=== PATIENT | female | born 1955 | race African-American/Black ===

== ENCOUNTER 2018-07-21 14:28 | Inpatient (IN) ==
[2018-07-21 15:31] LABS: Basophils # 0.1 10*3/uL (0.0-0.2); Basophils % 0.3 % (0.0-0.8); Eosinophils # 0.2 10*3/uL (0.0-0.87); Immature Granulocytes Absolute 1.12 #; Lymphocytes # 1.2 10*3/uL (1.4-4.0); Lymphocytes % 6.2 % (21.3-54.2); Mean Corpuscular HGB Conc 29.2 GM/DL (32-36); Mean Corpuscular Volume 89.7 FL (87-102); Mean Platelet Volume 10.4 FL (9.6-12.0); Monocytes % 6.7 % (1.7-12.7); NRBC # 0.03 10*3/uL; Neutrophils % 79.8 % (38.7-73.9); Platelet Count 255 T/CUMM (130-400); Red Blood Count 4.09 MC/CUMM (3.8-5.5)
[2018-07-21 15:32] LABS: Hematocrit 36.7 VOL% (35.7-47.0); Hemoglobin 10.7 GM/DL (12.0-16.0); White Blood Count 18.6 T/CUMM (4-12)
[2018-07-21 15:34] LABS: Albumin 2.8 G/DL (3.4-5.0); Bilirubin,Total 0.5 MG/DL (0.2-1.0); Calcium 7.6 MG/DL (8.5-10.1); Osmolality,Calculated 288.1 MOS/KG (273-304); Total Protein 6.9 G/DL (6.4-8.3)
[2018-07-21] MEDS ORDERED: ONDANSETRON 4 MG/2 ML VIAL IV PRN (16:02)
[2018-07-21 16:04] LABS: Band Neutrophils 7 % (0-10); Eosinophils 1 % (0-10); Lymphocytes 8 % (20-55); Segmented Neutrophils 83 % (50-85); Total Cells Counted 100
[2018-07-21 16:05] LABS: Platelet Estimate Normal; Reactive Lymphocytes Few; Rouleau 1+
[2018-07-21 16:06] LABS: Anisocytosis Slight; Hypochromasia 2+; Microcytosis Slight; Polychromasia 1+
[2018-07-21 17:09] LABS: Risk Ratio 2.65; Thyroid Stimulating Hormone 1.34 uIU/ml (0.358-3.74); VLDL CHOLESTEROL 27.4 MG/DL
[2018-07-21] MEDS ORDERED: NALOXONE 0.4 MG/ML VIAL IV ONE (18:53)
[2018-07-22 03:10] LABS: Basophils % 0.3 % (0.0-0.8); Eosinophils # 0.2 10*3/uL (0.0-0.87); Eosinophils % 1.5 % (0.00-10.9); Immature Granulocytes % 1.4 %; Immature Granulocytes Absolute 0.17 #; Lymphocytes # 1.2 10*3/uL (1.4-4.0); Lymphocytes % 9.6 % (21.3-54.2); Mean Corpuscular HGB Conc 28.1 GM/DL (32-36); Mean Corpuscular Volume 93.2 FL (87-102); Mean Platelet Volume 10.9 FL (9.6-12.0); Monocytes % 9.1 % (1.7-12.7); NRBC # 0.03 10*3/uL; Neutrophils % 78.1 % (38.7-73.9); Platelet Count 202 T/CUMM (130-400); Red Blood Count 3.82 MC/CUMM (3.8-5.5); Red Cell Distribution Width 19.2 % (9.3-17.3); White Blood Count 12.3 T/CUMM (4-12)
[2018-07-22 03:17] LABS: Hematocrit 35.6 VOL% (35.7-47.0)
[2018-07-22 03:32] LABS: Calcium 7.6 MG/DL (8.5-10.1); Osmolality,Calculated 284.4 MOS/KG (273-304)
[2018-07-22] MEDS ORDERED: hydrOXYzine HCL 25 MG TABLET PO PRN (06:50)
[2018-07-22] MEDS ORDERED: DEXTROSE 50% 25 GM/50 ML SYRINGE IV PRN (06:53)
[2018-07-22] MEDS ORDERED: GLUCAGON 1 MG VIAL IM PRN (06:53)
[2018-07-22] MEDS ORDERED: MIDODRINE 5 MG TABLET PO SCH (07:00)
[2018-07-22] MEDS: INSULIN LISPRO 100 UNIT/ML SUBCUT SCH ×4 (08:17→20:19)
[2018-07-22] MEDS: CALCIUM ACETATE 667 MG CAPSULE PO SCH ×3 (08:18→18:55)
[2018-07-22 09:42] LABS: ABG Oxygen Saturation 96.4 % (95-100); ABG TCO2 24.3 MMOL/L (23-27)
[2018-07-22 09:44] LABS: ABG PCO2 69.8 MM HG (35-48); ABG PH 7.175 (7.35-7.45)
[2018-07-22] MEDS: CINACALCET 30 MG TABLET PO SCH (10:50)
[2018-07-22] MEDS: PANTOPRAZOLE 40 MG TABLET PO SCH (10:51)
[2018-07-22 12:11] LABS: ABG Base Excess -4.8 MMOL/L (-2.5-2.5); ABG HCO3 20.4 MMOL/L (20-26); ABG TCO2 23.8 MMOL/L (23-27)
[2018-07-22 12:15] LABS: ABG PH 7.164 (7.35-7.45)
[2018-07-22 12:16] LABS: ABG PCO2 71.3 MM HG (35-48)
[2018-07-22] MEDS ORDERED: HEPARIN 10,000 UNIT/10 ML VIAL IV PRN (13:44)
[2018-07-22 14:12] LABS: ABG Base Excess -4.2 MMOL/L (-2.5-2.5); ABG HCO3 20.8 MMOL/L (20-26); ABG Oxygen Saturation 90.6 % (95-100); ABG PCO2 59.4 MM HG (35-48); ABG PH 7.224 (7.35-7.45); ABG PO2 73.6 MM HG (80-95); ABG TCO2 22.5 MMOL/L (23-27)
[2018-07-22] MEDS: HEPARIN 5,000 UNIT/1 ML VIAL SUBCUT SCH (18:55)
[2018-07-22] MEDS: ALBUTEROL/IPRATROPIUM 3 ML NEB RESP TX SCH (20:03)
[2018-07-23] MEDS: ALBUTEROL/IPRATROPIUM 3 ML NEB RESP TX SCH ×4 (00:15→19:55)
[2018-07-23] MEDS: HEPARIN 5,000 UNIT/1 ML VIAL SUBCUT SCH ×3 (01:27→17:20)
[2018-07-23 02:41] LABS: Basophils % 0.3 % (0.0-0.8); Eosinophils # 0.2 10*3/uL (0.0-0.87); Hematocrit 35.3 VOL% (35.7-47.0); Hemoglobin 9.9 GM/DL (12.0-16.0); Immature Granulocytes % 0.7 %; Immature Granulocytes Absolute 0.06 #; Lymphocytes # 0.8 10*3/uL (1.4-4.0); Lymphocytes % 9.3 % (21.3-54.2); Mean Corpuscular Volume 91.9 FL (87-102); Mean Platelet Volume 10.2 FL (9.6-12.0); Monocytes % 12.8 % (1.7-12.7); NRBC # 0.02 10*3/uL; Neutrophils % 74.9 % (38.7-73.9); Platelet Count 184 T/CUMM (130-400); Red Blood Count 3.84 MC/CUMM (3.8-5.5); Red Cell Distribution Width 19.2 % (9.3-17.3); White Blood Count 9.1 T/CUMM (4-12)
[2018-07-23 03:05] LABS: Calcium 8.1 MG/DL (8.5-10.1); Osmolality,Calculated 280.2 MOS/KG (273-304)
[2018-07-23] MEDS: ACETAMINOPHEN 325 MG/10.15 ML UDCUP PO PRN (07:52)
[2018-07-23] MEDS: CALCIUM ACETATE 667 MG CAPSULE PO SCH ×3 (09:08→17:20)
[2018-07-23] MEDS: CINACALCET 30 MG TABLET PO SCH (09:08)
[2018-07-23] MEDS: INSULIN LISPRO 100 UNIT/ML SUBCUT SCH ×4 (09:09→21:51)
[2018-07-23] MEDS: PANTOPRAZOLE 40 MG TABLET PO SCH (09:09)
[2018-07-23 11:51] LABS: Hepatitis B Core IgM Quant < 0.05 Index; Hepatitis B Surface Ag Quant < 0.10 Index; Hepatitis B Surface Ag Result Negative (Negative); Hepatitis C Virus Ab Quant 0.07 Index; Hepatitis C Virus Ab Result Negative (Negative)
[2018-07-24] MEDS: HEPARIN 5,000 UNIT/1 ML VIAL SUBCUT SCH ×3 (01:20→16:32)
[2018-07-24] MEDS: ALBUTEROL/IPRATROPIUM 3 ML NEB RESP TX SCH ×4 (02:02→18:55)
[2018-07-24 02:53] LABS: Basophils # 0.1 10*3/uL (0.0-0.2); Basophils % 0.7 % (0.0-0.8); Eosinophils # 0.1 10*3/uL (0.0-0.87); Eosinophils % 1.3 % (0.00-10.9); Immature Granulocytes % 0.7 %; Immature Granulocytes Absolute 0.05 #; Lymphocytes # 1.1 10*3/uL (1.4-4.0); Lymphocytes % 15.6 % (21.3-54.2); Mean Corpuscular HGB Conc 27.4 GM/DL (32-36); Mean Corpuscular Volume 93.3 FL (87-102); Mean Platelet Volume 10.2 FL (9.6-12.0); Monocytes % 18.4 % (1.7-12.7); NRBC # 0.02 10*3/uL; Neutrophils % 63.3 % (38.7-73.9); Platelet Count 161 T/CUMM (130-400); Red Blood Count 3.44 MC/CUMM (3.8-5.5); White Blood Count 7.2 T/CUMM (4-12)
[2018-07-24 03:09] LABS: Calcium 7.6 MG/DL (8.5-10.1)
[2018-07-24 03:15] LABS: Hematocrit 31.9 VOL% (35.7-47.0)
[2018-07-24 03:16] LABS: Hemoglobin 8.9 GM/DL (12.0-16.0)
[2018-07-24] MEDS: ACETAMINOPHEN 325 MG/10.15 ML UDCUP PO PRN (03:25)
[2018-07-24 04:00] LABS: Band Neutrophils 1 % (0-10); Eosinophils 1 % (0-10); Lymphocytes 20 % (20-55); Segmented Neutrophils 67 % (50-85); Total Cells Counted 100
[2018-07-24 04:01] LABS: Anisocytosis 1+; Hypochromasia 1+; Platelet Estimate Adequate; Tear Drop Cells Few
[2018-07-24] MEDS: INSULIN LISPRO 100 UNIT/ML SUBCUT SCH ×4 (07:02→21:47)
[2018-07-24] MEDS: CINACALCET 30 MG TABLET PO SCH (08:38)
[2018-07-24] MEDS: CALCIUM ACETATE 667 MG CAPSULE PO SCH ×3 (08:39→16:32)
[2018-07-24] MEDS: PANTOPRAZOLE 40 MG TABLET PO SCH (08:39)
[2018-07-25] MEDS: HEPARIN 5,000 UNIT/1 ML VIAL SUBCUT SCH ×2 (00:48→08:00)
[2018-07-25] MEDS: ALBUTEROL/IPRATROPIUM 3 ML NEB RESP TX SCH ×2 (02:36→07:13)
[2018-07-25 07:39] LABS: Calcium 8.2 MG/DL (8.5-10.1); Osmolality,Calculated 272.2 MOS/KG (273-304)
[2018-07-25 07:45] LABS: Basophils # 0.1 10*3/uL (0.0-0.2); Basophils % 1.1 % (0.0-0.8); Eosinophils # 0.2 10*3/uL (0.0-0.87); Eosinophils % 2.6 % (0.00-10.9); Hematocrit 30.2 VOL% (35.7-47.0); Hemoglobin 8.5 GM/DL (12.0-16.0); Immature Granulocytes % 0.9 %; Immature Granulocytes Absolute 0.07 #; Lymphocytes # 0.9 10*3/uL (1.4-4.0); Lymphocytes % 12.8 % (21.3-54.2); Mean Corpuscular HGB Conc 28.1 GM/DL (32-36); Mean Corpuscular Volume 90.1 FL (87-102); Mean Platelet Volume 10.8 FL (9.6-12.0); Monocytes % 14.5 % (1.7-12.7); Neutrophils % 68.1 % (38.7-73.9); Platelet Count 143 T/CUMM (130-400); Red Blood Count 3.35 MC/CUMM (3.8-5.5); Red Cell Distribution Width 18.8 % (9.3-17.3); White Blood Count 7.4 T/CUMM (4-12)
[2018-07-25 07:47] LABS: Platelet Estimate Adequate
[2018-07-25 07:48] LABS: Basophilic Stippling Slight; Tear Drop Cells Few
[2018-07-25] MEDS: INSULIN LISPRO 100 UNIT/ML SUBCUT SCH ×2 (07:49→13:25)
[2018-07-25] MEDS: CALCIUM ACETATE 667 MG CAPSULE PO SCH ×2 (08:00→12:39)
[2018-07-25] MEDS: CINACALCET 30 MG TABLET PO SCH (08:00)
[2018-07-25] MEDS: ACETAMINOPHEN 325 MG/10.15 ML UDCUP PO PRN (08:00)
[2018-07-25] MEDS: PANTOPRAZOLE 40 MG TABLET PO SCH (08:00)
[2018-07-25 12:08] VITALS: BP 111/77
[2018-07-25] MEDS ORDERED: PROMETHAZINE 25 MG/1 ML VIAL IM ONE (12:12)
== END 2018-07-25 13:20 | disposition home or self-care (01) | DRG 314 ==
LOC: EDUNIT# → N.EDINP 14:28 → N.ED 14:28 → SUATTDRO 15:28 → N.CC 17:37 → N.2E 07-24 20:22
PROVIDERS: ADMIT Internal Medicine; ATTEND Internal Medicine

== ENCOUNTER 2019-12-17 22:32 | Inpatient (IN) ==
[2019-12-17 23:35] LABS: Basophils % 0.5 % (0.0-0.8); Eosinophils # 0.2 10*3/uL (0.0-0.87); Eosinophils % 2.3 % (0.00-10.9); Hematocrit 33.6 VOL% (35.7-47.0); Hemoglobin 9.9 GM/DL (12.0-16.0); Immature Granulocytes % 0.8 %; Immature Granulocytes Absolute 0.06 #; Lymphocytes % 12.8 % (21.3-54.2); Mean Corpuscular HGB Conc 29.5 GM/DL (32-36); Mean Corpuscular Volume 102.1 FL (87-102); Monocytes % 9.1 % (1.7-12.7); Neutrophils % 74.5 % (38.7-73.9); Platelet Count 189 T/CUMM (130-400); Red Blood Count 3.29 MC/CUMM (3.8-5.5); Red Cell Distribution Width 15.9 % (9.3-17.3); White Blood Count 7.8 T/CUMM (4-12)
[2019-12-17 23:37] LABS: ABG Base Excess 7.3 MMOL/L (-2.5-2.5); ABG HCO3 30.8 MMOL/L (20-26); ABG Oxygen Saturation 81.4 % (95-100); ABG PO2 55.8 MM HG (80-95); ABG TCO2 35.2 MMOL/L (23-27); Allen Test Positive
[2019-12-17 23:40] LABS: ABG PCO2 88.3 MM HG (35-48)
[2019-12-17 23:43] LABS: PT Patient Result 10.9 SECS (9.8-11.9)
[2019-12-17 23:58] LABS: Alanine Aminotransferase 24 U/L (13-56); Albumin 3.3 G/DL (3.4-5.0); Alkaline Phosphatase 155 U/L (45-117); Aspartate Amino Transferase 11 U/L (0-37); Bilirubin,Total < 0.39 MG/DL (0.2-1.0); Blood Urea Nitrogen 22 MG/DL (7-18); Calcium 8.8 MG/DL (8.5-10.1); Estimated Glom Filtration Rate 7 ML/MIN; Glucose 123 MG/DL (74-106); Osmolality,Calculated 282.4 MOS/KG (273-304)
[2019-12-18 04:09] LABS: Basophils # 0.1 10*3/uL (0.0-0.2); Basophils % 0.8 % (0.0-0.8); Eosinophils # 0.2 10*3/uL (0.0-0.87); Eosinophils % 2.4 % (0.00-10.9); Hematocrit 34.5 VOL% (35.7-47.0); Hemoglobin 10.2 GM/DL (12.0-16.0); Immature Granulocytes % 0.4 %; Immature Granulocytes Absolute 0.03 #; Lymphocytes # 1.1 10*3/uL (1.4-4.0); Lymphocytes % 15.2 % (21.3-54.2); Mean Corpuscular HGB Conc 29.6 GM/DL (32-36); Mean Corpuscular Volume 100.3 FL (87-102); Mean Platelet Volume 11.4 FL (9.6-12.0); Monocytes % 11.7 % (1.7-12.7); Neutrophils % 69.5 % (38.7-73.9); Platelet Count 203 T/CUMM (130-400); Red Blood Count 3.44 MC/CUMM (3.8-5.5); Red Cell Distribution Width 15.9 % (9.3-17.3); White Blood Count 7.5 T/CUMM (4-12)
[2019-12-18 04:21] LABS: Calcium 9.3 MG/DL (8.5-10.1); Osmolality,Calculated 278.8 MOS/KG (273-304)
[2019-12-18 05:16] LABS: Anisocytosis 1+; Hypochromasia 1+; Microcytosis 1+; Platelet Estimate Normal
[2019-12-18 10:31] LABS: ABG Base Excess 6.4 MMOL/L (-2.5-2.5); ABG HCO3 30.2 MMOL/L (20-26); ABG Oxygen Saturation 96.6 % (95-100); ABG TCO2 32.8 MMOL/L (23-27)
[2019-12-18 10:35] LABS: ABG PCO2 75.5 MM HG (35-48)
[2019-12-18] MEDS: ALBUTEROL/IPRATROPIUM 3 ML NEB RESP TX SCH ×2 (14:48→19:14)
[2019-12-18] MEDS: methylPREDNISolone SOD SUC 40 MG/1 ML VIAL IV SCH ×2 (15:04→22:40)
[2019-12-18] MEDS: LEVOFLOXACIN INJ 500 MG in PREMIX 1 EACH IV SCH (15:04)
[2019-12-18] MEDS ORDERED: diphenhydrAMINE CAP 25 MG CAPSULE PO PRN (22:17)
[2019-12-19] MEDS: ALBUTEROL/IPRATROPIUM 3 ML NEB RESP TX SCH ×4 (01:47→19:35)
[2019-12-19] MEDS ORDERED: NIFEdipine 10 MG CAPSULE PO SCH (06:00)
[2019-12-19] MEDS: NIFEdipine 10 MG CAPSULE PO PRN ×2 (06:18→10:26)
[2019-12-19] MEDS ORDERED: GLUCAGON 1 MG VIAL IM PRN (08:47)
[2019-12-19] MEDS ORDERED: DEXTROSE 50% 25 GM/50 ML VIAL IV PRN (08:47)
[2019-12-19] MEDS: predniSONE 10 MG TABLET PO SCH ×2 (09:25→20:47)
[2019-12-19] MEDS: INSULIN LISPRO 100 UNIT/ML SUBCUT SCH ×3 (11:30→23:36)
[2019-12-19] MEDS ORDERED: CALCIUM ACETATE 667 MG CAPSULE PO SCH (12:00)
[2019-12-19] MEDS ORDERED: PROMETHAZINE 25 MG TABLET PO PRN (12:24)
[2019-12-19] MEDS: CALCIUM ACETATE 667 MG CAPSULE PO SCH ×2 (12:36→16:29)
[2019-12-19] MEDS ORDERED: ALBUTEROL/IPRATROPIUM 3 ML NEB RESP TX ONE (22:35)
[2019-12-20] MEDS: ALBUTEROL/IPRATROPIUM 3 ML NEB RESP TX SCH ×5 (01:32→20:04)
[2019-12-20] MEDS ORDERED: ALBUTEROL/IPRATROPIUM 3 ML NEB RESP TX ONE (07:18)
[2019-12-20 07:22] LABS: Osmolality,Calculated 289.2 MOS/KG (273-304)
[2019-12-20] MEDS: predniSONE 10 MG TABLET PO SCH ×2 (08:45→21:50)
[2019-12-20] MEDS: INSULIN LISPRO 100 UNIT/ML SUBCUT SCH ×4 (08:45→21:50)
[2019-12-20] MEDS: CALCIUM ACETATE 667 MG CAPSULE PO SCH ×3 (08:45→16:34)
[2019-12-20] MEDS: LEVOFLOXACIN INJ 500 MG in PREMIX 1 EACH IV SCH (08:51)
[2019-12-20] MEDS: amLODIPine 10 MG TABLET PO SCH (14:37)
[2019-12-20 15:56] LABS: CKMB % 1.6 %
[2019-12-20 15:58] LABS: Troponin I 0.068 NG/ML (0.00-0.045)
[2019-12-20] MEDS: HEPARIN 5,000 UNIT/1 ML VIAL SUBCUT SCH (16:34)
[2019-12-21] MEDS: ALBUTEROL/IPRATROPIUM 3 ML NEB RESP TX SCH ×3 (00:04→12:59)
[2019-12-21] MEDS: HEPARIN 5,000 UNIT/1 ML VIAL SUBCUT SCH ×2 (00:17→09:23)
[2019-12-21 06:26] LABS: Basophils % 0.3 % (0.0-0.8); Eosinophils # 0.1 10*3/uL (0.0-0.87); Eosinophils % 1.3 % (0.00-10.9); Hematocrit 33.2 VOL% (35.7-47.0); Hemoglobin 10.3 GM/DL (12.0-16.0); Immature Granulocytes % 0.6 %; Immature Granulocytes Absolute 0.04 #; Lymphocytes # 0.6 10*3/uL (1.4-4.0); Lymphocytes % 9.2 % (21.3-54.2); Mean Corpuscular Volume 95.7 FL (87-102); Mean Platelet Volume 10.3 FL (9.6-12.0); Monocytes % 7.6 % (1.7-12.7); Platelet Count 171 T/CUMM (130-400); Red Blood Count 3.47 MC/CUMM (3.8-5.5); Red Cell Distribution Width 16.1 % (9.3-17.3); White Blood Count 6.2 T/CUMM (4-12)
[2019-12-21 06:52] LABS: CKMB % 1.6 %; Calcium 9.1 MG/DL (8.5-10.1); Osmolality,Calculated 281.2 MOS/KG (273-304)
[2019-12-21 06:53] LABS: Troponin I 0.07 NG/ML (0.00-0.045)
[2019-12-21] MEDS: INSULIN LISPRO 100 UNIT/ML SUBCUT SCH ×2 (08:33→11:48)
[2019-12-21] MEDS: amLODIPine 10 MG TABLET PO SCH (09:22)
[2019-12-21] MEDS: predniSONE 10 MG TABLET PO SCH (09:22)
[2019-12-21] MEDS: CALCIUM ACETATE 667 MG CAPSULE PO SCH ×2 (09:22→12:13)
[2019-12-21 11:26] LABS: Risk Ratio 4.11; VLDL CHOLESTEROL 49.4 MG/DL
[2019-12-21 11:42] VITALS: BP 156/68
[2019-12-21] MEDS ORDERED: INFLUENZA VIRUS VACCINE 0.5 ML SYRINGE IM ONE (12:27)
== END 2019-12-21 14:06 | disposition home health service (06) | DRG 189 ==
LOC: EDUNIT# → N.ED 22:32 → N.EDINP 12-18 00:38 → SUATTDRO 12-18 00:38 → N.ICU 12-18 13:01 → N.5E 12-19 12:07
PROVIDERS: ADMIT Internal Medicine; ATTEND Internal Medicine

== ENCOUNTER 2020-03-20 06:39 | Observation (INO) ==
[2020-03-20 08:18] LABS: Basophils % 0.5 % (0.0-0.8); Calcium 8.8 MG/DL (8.5-10.1); Eosinophils # 0.2 10*3/uL (0.0-0.87); Eosinophils % 2.5 % (0.00-10.9); Hematocrit 36.3 VOL% (35.7-47.0); Hemoglobin 10.8 GM/DL (12.0-16.0); Immature Granulocytes % 0.7 %; Immature Granulocytes Absolute 0.05 #; Lymphocytes # 0.9 10*3/uL (1.4-4.0); Lymphocytes % 12.1 % (21.3-54.2); Mean Corpuscular HGB Conc 29.8 GM/DL (32-36); Mean Corpuscular Volume 106.1 FL (87-102); Monocytes % 9.2 % (1.7-12.7); NRBC # 0.02 10*3/uL; Osmolality,Calculated 278.8 MOS/KG (273-304); Platelet Count 182 T/CUMM (130-400); Potassium 3.9 MMOL/L (3.5-5.1); Red Blood Count 3.42 MC/CUMM (3.8-5.5); Red Cell Distribution Width 20.5 % (9.3-17.3); White Blood Count 7.6 T/CUMM (4-12)
[2020-03-20] MEDS ORDERED: SODIUM CHLORIDE 0.9% 1,000 ML IV SCH (13:16)
[2020-03-20] MEDS ORDERED: ACETAMINOPHEN 325 MG TABLET PO PRN (13:16)
[2020-03-20] MEDS ORDERED: ONDANSETRON 4 MG/2 ML VIAL IV PRN (13:16)
[2020-03-20] MEDS: cefTRIAXone 1,000 MG in SYRINGE 1 EACH IV SCH (16:02)
[2020-03-20] MEDS ORDERED: PROMETHAZINE 25 MG TABLET PO PRN (16:25)
[2020-03-20] MEDS ORDERED: INFLUENZA VIRUS VACCINE 0.5 ML SYRINGE IM ONE (17:13)
[2020-03-20] MEDS: CALCIUM ACETATE 667 MG CAPSULE PO SCH (17:51)
[2020-03-20] MEDS: oxyCODONE/ACETAMINOPHEN 5-325 MG TABLET PO PRN (19:34)
[2020-03-20] MEDS: DOCUSATE SODIUM 100 MG CAPSULE PO SCH (21:27)
[2020-03-21] MEDS: oxyCODONE/ACETAMINOPHEN 5-325 MG TABLET PO PRN ×2 (06:04→22:22)
[2020-03-21] MEDS: DOCUSATE SODIUM 100 MG CAPSULE PO SCH ×2 (09:40→22:22)
[2020-03-21] MEDS: CALCIUM ACETATE 667 MG CAPSULE PO SCH ×3 (09:40→19:52)
[2020-03-21] MEDS: amLODIPine 10 MG TABLET PO SCH (09:40)
[2020-03-21] MEDS: PANTOPRAZOLE 40 MG TABLET PO SCH (09:40)
[2020-03-21] MEDS: sitaGLIPtin 25 MG TABLET PO SCH (09:40)
[2020-03-21] MEDS: ASPIRIN CHEW 81 MG TABLET PO SCH (09:44)
[2020-03-21] MEDS ORDERED: VANCOMYCIN INJ 750 MG in SODIUM CHLORIDE 0.9% 250 ML IV PRN (11:31)
[2020-03-21] MEDS: cefTRIAXone 1,000 MG in SYRINGE 1 EACH IV SCH (16:35)
[2020-03-21] MEDS ORDERED: VANCOMYCIN INJ 2,000 MG in SODIUM CHLORIDE 0.9% 500 ML IV ONE (17:00)
[2020-03-22 06:07] LABS: Basophils % 0.6 % (0.0-0.8); Eosinophils # 0.2 10*3/uL (0.0-0.87); Eosinophils % 3.6 % (0.00-10.9); Hematocrit 32.4 VOL% (35.7-47.0); Hemoglobin 9.6 GM/DL (12.0-16.0); Immature Granulocytes % 0.5 %; Immature Granulocytes Absolute 0.03 #; Lymphocytes % 16.1 % (21.3-54.2); Mean Corpuscular HGB Conc 29.6 GM/DL (32-36); Mean Corpuscular Volume 105.2 FL (87-102); Mean Platelet Volume 10.9 FL (9.6-12.0); Monocytes % 12.7 % (1.7-12.7); Neutrophils % 66.5 % (38.7-73.9); Red Blood Count 3.08 MC/CUMM (3.8-5.5); White Blood Count 6.4 T/CUMM (4-12)
[2020-03-22 06:13] LABS: Platelet Count 141 T/CUMM (130-400)
[2020-03-22 06:19] LABS: Hypochromasia 1+; Microcytosis 1+; Platelet Estimate Adequate
[2020-03-22 06:26] LABS: Calcium 8.5 MG/DL (8.5-10.1); Osmolality,Calculated 281.5 MOS/KG (273-304); Potassium 4.3 MMOL/L (3.5-5.1)
[2020-03-22] MEDS: DOCUSATE SODIUM 100 MG CAPSULE PO SCH (08:35)
[2020-03-22] MEDS: PANTOPRAZOLE 40 MG TABLET PO SCH (08:35)
[2020-03-22] MEDS: amLODIPine 10 MG TABLET PO SCH (08:35)
[2020-03-22] MEDS: sitaGLIPtin 25 MG TABLET PO SCH (08:35)
[2020-03-22] MEDS: CALCIUM ACETATE 667 MG CAPSULE PO SCH ×2 (08:35→13:46)
[2020-03-22] MEDS: ASPIRIN CHEW 81 MG TABLET PO SCH (08:35)
[2020-03-22 11:49] VITALS: BP 147/54
== END 2020-03-22 17:11 | disposition home health service (06) ==
LOC: EDBD → EDUNIT# → N.ED 06:39 → INTOOBSV 11:07 → N.EDINP 11:07 → N.3E 12:40
PROVIDERS: ADMIT Family Medicine; ATTEND Family Medicine

== ENCOUNTER 2020-05-24 13:06 | Observation (INO) ==
[2020-05-24 14:13] LABS: Basophils % 0.4 % (0.0-0.8); Eosinophils # 0.2 10*3/uL (0.0-0.87); Eosinophils % 2.3 % (0.00-10.9); Hematocrit 32.1 VOL% (35.7-47.0); Hemoglobin 9.5 GM/DL (12.0-16.0); Immature Granulocytes % 0.8 %; Immature Granulocytes Absolute 0.08 #; Lymphocytes # 0.9 10*3/uL (1.4-4.0); Lymphocytes % 8.9 % (21.3-54.2); Mean Corpuscular HGB Conc 29.6 GM/DL (32-36); Mean Corpuscular Volume 97.6 FL (87-102); Mean Platelet Volume 11.1 FL (9.6-12.0); Monocytes % 8.5 % (1.7-12.7); NRBC # 0.03 10*3/uL; Neutrophils % 79.1 % (38.7-73.9); Platelet Count 212 T/CUMM (130-400); Red Blood Count 3.29 MC/CUMM (3.8-5.5); Red Cell Distribution Width 19.7 % (9.3-17.3); White Blood Count 10.3 T/CUMM (4-12)
[2020-05-24 14:34] LABS: Bilirubin,Total 0.5 MG/DL (0.2-1.0); Calcium 8.6 MG/DL (8.5-10.1); Free T4 (Free Thyroxine) 0.96 NG/DL (0.76-1.46); Potassium 3.3 MMOL/L (3.5-5.1); Thyroid Stimulating Hormone 0.997 uIU/ml (0.358-3.74)
[2020-05-24] MEDS ORDERED: GLUCAGON 1 MG VIAL IM PRN (17:14)
[2020-05-24] MEDS ORDERED: PROMETHAZINE 25 MG/1 ML VIAL IM PRN (17:14)
[2020-05-24] MEDS ORDERED: LINACLOTIDE 145 MCG CAPSULE PO PRN (17:14)
[2020-05-24] MEDS ORDERED: DEXTROSE 50% 25 GM/50 ML VIAL IV PRN (17:14)
[2020-05-24] MEDS: INSULIN LISPRO 100 UNIT/ML SUBCUT SCH ×2 (18:19→21:28)
[2020-05-24] MEDS: CALCIUM ACETATE 667 MG CAPSULE PO SCH (18:49)
[2020-05-24] MEDS: DOCUSATE SODIUM 100 MG CAPSULE PO SCH (21:55)
[2020-05-24] MEDS: ACETAMINOPHEN 325 MG TABLET PO PRN (23:41)
[2020-05-25 05:45] LABS: Basophils % 0.4 % (0.0-0.8); Eosinophils # 0.3 10*3/uL (0.0-0.87); Hematocrit 32.8 VOL% (35.7-47.0); Immature Granulocytes % 0.6 %; Immature Granulocytes Absolute 0.04 #; Lymphocytes % 14.3 % (21.3-54.2); Mean Corpuscular HGB Conc 28.7 GM/DL (32-36); Mean Corpuscular Volume 99.1 FL (87-102); Mean Platelet Volume 10.9 FL (9.6-12.0); Monocytes % 10.7 % (1.7-12.7); NRBC # 0.02 10*3/uL; Platelet Count 194 T/CUMM (130-400); Red Blood Count 3.31 MC/CUMM (3.8-5.5)
[2020-05-25 05:46] LABS: Hemoglobin 9.4 GM/DL (12.0-16.0)
[2020-05-25 05:52] LABS: Calcium 8.7 MG/DL (8.5-10.1); Osmolality,Calculated 280.7 MOS/KG (273-304); Potassium 3.4 MMOL/L (3.5-5.1)
[2020-05-25 06:09] LABS: Anisocytosis 1+; Hypochromasia 1+; Microcytosis 1+
[2020-05-25 06:10] LABS: Ovalocytes Slight; Platelet Estimate Adequate; Polychromasia Slight; Target Cells Slight
[2020-05-25] MEDS: DOCUSATE SODIUM 100 MG CAPSULE PO SCH ×2 (09:49→22:18)
[2020-05-25] MEDS: GABAPENTIN 300 MG CAPSULE PO SCH (09:49)
[2020-05-25] MEDS: sitaGLIPtin 25 MG TABLET PO SCH (09:49)
[2020-05-25] MEDS: ASPIRIN CHEW 81 MG TABLET PO SCH (09:49)
[2020-05-25] MEDS: CALCIUM ACETATE 667 MG CAPSULE PO SCH ×3 (09:49→17:06)
[2020-05-25] MEDS: PANTOPRAZOLE 40 MG TABLET PO SCH (09:49)
[2020-05-25] MEDS: INSULIN LISPRO 100 UNIT/ML SUBCUT SCH ×2 (10:19→12:20)
[2020-05-25] MEDS ORDERED: GLUCAGON 1 MG VIAL IM PRN (11:32)
[2020-05-25] MEDS ORDERED: DEXTROSE 50% 25 GM/50 ML VIAL IV PRN (11:32)
[2020-05-25] MEDS: ONDANSETRON 4 MG/2 ML VIAL IV PRN ×2 (14:18→22:00)
[2020-05-25] MEDS ORDERED: POTASSIUM CHLORIDE 20 MEQ TABLET PO PRN (16:56)
[2020-05-25] MEDS ORDERED: MAGNESIUM SULF RIDER 4 GM in PREMIX 1 EACH IV PRN (16:56)
[2020-05-25] MEDS ORDERED: MAGNESIUM SULF RIDER 2 GM in PREMIX 1 EACH IV PRN (16:56)
[2020-05-25] MEDS: ACETAMINOPHEN 325 MG TABLET PO PRN (22:02)
[2020-05-25] MEDS: INSULIN REGULAR 100 UNIT/ML SUBCUT SCH (22:18)
[2020-05-26] MEDS ORDERED: HYDROCORTISONE 25 MG SUPP RECTAL PRN (05:05)
[2020-05-26] MEDS: GABAPENTIN 300 MG CAPSULE PO SCH (08:17)
[2020-05-26] MEDS: CALCIUM ACETATE 667 MG CAPSULE PO SCH ×2 (08:17→13:59)
[2020-05-26] MEDS: ASPIRIN CHEW 81 MG TABLET PO SCH (08:17)
[2020-05-26] MEDS: PANTOPRAZOLE 40 MG TABLET PO SCH (08:17)
[2020-05-26] MEDS: sitaGLIPtin 25 MG TABLET PO SCH (08:17)
[2020-05-26] MEDS: DOCUSATE SODIUM 100 MG CAPSULE PO SCH (08:17)
[2020-05-26] MEDS: INSULIN REGULAR 100 UNIT/ML SUBCUT SCH ×2 (09:12→14:15)
[2020-05-26] MEDS ORDERED: HEPARIN 10,000 UNIT/10 ML VIAL IV PRN (11:00)
[2020-05-26 13:58] VITALS: BP 106/43
== END 2020-05-26 14:44 | disposition home health service (06) ==
LOC: EDUNIT# → EDBD → N.ED 13:06 → N.5E 13:06
PROVIDERS: ADMIT Family Medicine; ATTEND Family Medicine

== ENCOUNTER 2020-07-19 15:07 | Inpatient (IN) ==
[2020-07-19] MEDS ORDERED: ETOMIDATE 20 MG/10 ML VIAL IV STA (15:15)
[2020-07-19] MEDS ORDERED: ROCURONIUM 100 MG/10 ML VIAL IV STA (15:15)
[2020-07-19] MEDS ORDERED: MIDAZOLAM 10 MG/2 ML VIAL IV STA (15:15)
[2020-07-19] MEDS ORDERED: fentaNYL 100 MCG/2 ML VIAL IV STA (15:15)
[2020-07-19] MEDS ORDERED: fentaNYL 100 MCG/2 ML VIAL ONE (15:16)
[2020-07-19] MEDS ORDERED: MIDAZOLAM 10 MG/2 ML VIAL ONE (15:16)
[2020-07-19] MEDS ORDERED: ROCURONIUM 100 MG/10 ML VIAL IV ONE (15:21)
[2020-07-19] MEDS ORDERED: ALBUTEROL 2.5 MG/3 ML NEB RESP TX PRN (16:03)
[2020-07-19] MEDS ORDERED: ACETAMINOPHEN 325 MG TABLET PO PRN (16:03)
[2020-07-19] MEDS ORDERED: ONDANSETRON 4 MG/2 ML VIAL IV PRN (16:03)
[2020-07-19 16:11] LABS: Basophils % 0.3 % (0.0-0.8); Eosinophils # 0.2 10*3/uL (0.0-0.87); Eosinophils % 1.7 % (0.00-10.9); Hematocrit 40.3 VOL% (35.7-47.0); Hemoglobin 11.2 GM/DL (12.0-16.0); Immature Granulocytes % 0.6 %; Immature Granulocytes Absolute 0.07 #; Lymphocytes # 2.7 10*3/uL (1.4-4.0); Lymphocytes % 23.1 % (21.3-54.2); Mean Corpuscular HGB Conc 27.8 GM/DL (32-36); Mean Corpuscular Volume 105.2 FL (87-102); NRBC # 0.06 10*3/uL; Neutrophils % 65.3 % (38.7-73.9); Platelet Count 187 T/CUMM (130-400); Red Blood Count 3.83 MC/CUMM (3.8-5.5); Red Cell Distribution Width 22.6 % (9.3-17.3); White Blood Count 11.6 T/CUMM (4-12)
[2020-07-19 16:17] LABS: Albumin 2.9 G/DL (3.4-5.0); Bilirubin,Total 0.5 MG/DL (0.2-1.0); Calcium 9.4 MG/DL (8.5-10.1); Osmolality,Calculated 279.7 MOS/KG (273-304); Potassium 3.7 MMOL/L (3.5-5.1); Total Protein 6.3 G/DL (6.4-8.2)
[2020-07-19] MEDS ORDERED: DEXTROSE 50% 25 GM/50 ML VIAL IV PRN (16:18)
[2020-07-19] MEDS ORDERED: GLUCAGON 1 MG VIAL IM PRN (16:18)
[2020-07-19 16:19] LABS: INR 1.1; PT Patient Result 12.3 SECS (10.5-12.0)
[2020-07-19] MEDS: SODIUM CHLORIDE 0.9% 1,000 ML IV SCH (16:20)
[2020-07-19] MEDS: MIDAZOLAM 100 MG in SODIUM CHLORIDE 0.9% 80 ML IV PRN (16:21)
[2020-07-19 16:24] LABS: Anisocytosis 1+; Burr Cells Few; Eosinophils 1 % (0-10); Hypochromasia Slight; Lymphocytes 17 % (20-55); Polychromasia 1+; Segmented Neutrophils 73 % (50-85); Total Cells Counted 100
[2020-07-19 16:25] LABS: Platelet Estimate Adequate; Schistocytes Few
[2020-07-19 16:48] LABS: ABG HCO3 30.8 MMOL/L (20-26); ABG PH 7.495 (7.35-7.45); ABG TCO2 27.6 MMOL/L (23-27)
[2020-07-19] MEDS ORDERED: NOREPINEPHRINE 16 MG in SODIUM CHLORIDE 0.9% 234 ML IV PRN (17:13)
[2020-07-19 17:49] LABS: ABG Base Excess 7.3 MMOL/L (-2.5-2.5); ABG HCO3 31.2 MMOL/L (20-26); ABG PCO2 40.9 MM HG (35-48); ABG PH 7.492 (7.35-7.45); ABG TCO2 27.6 MMOL/L (23-27)
[2020-07-19 17:56] LABS: Troponin I 0.116 NG/ML (0.00-0.045)
[2020-07-19] MEDS: fentaNYL INJ 1,250 MCG in SODIUM CHLORIDE 0.9% 225 ML IV PRN (17:59)
[2020-07-19] MEDS: CISATRACURIUM 10 MG/5 ML VIAL IV PRN ×2 (18:04→23:19)
[2020-07-19] MEDS: INSULIN REGULAR 100 UNIT/ML SUBCUT SCH (18:06)
[2020-07-19] MEDS: amLODIPine 5 MG TABLET PO SCH ×2 (18:34→20:50)
[2020-07-19] MEDS: MINERAL OIL/PETROLATUM OPH OINT 3.5 GM TUBE BOTH EYES SCH (20:50)
[2020-07-19 22:53] LABS: Basophils % 0.1 % (0.0-0.8); Hematocrit 42.7 VOL% (35.7-47.0); Hemoglobin 12.5 GM/DL (12.0-16.0); Immature Granulocytes % 0.7 %; Immature Granulocytes Absolute 0.06 #; Lymphocytes # 0.5 10*3/uL (1.4-4.0); Lymphocytes % 6.2 % (21.3-54.2); Mean Corpuscular HGB Conc 29.3 GM/DL (32-36); Mean Corpuscular Volume 101.2 FL (87-102); Mean Platelet Volume 10.6 FL (9.6-12.0); Monocytes % 2.7 % (1.7-12.7); Neutrophils % 90.3 % (38.7-73.9); Platelet Count 153 T/CUMM (130-400); Red Blood Count 4.22 MC/CUMM (3.8-5.5); Red Cell Distribution Width 22.4 % (9.3-17.3); White Blood Count 8.7 T/CUMM (4-12)
[2020-07-19 23:02] LABS: PT Patient Result 11.6 SECS (10.5-12.0); Partial Thromboplastin Time 26.9 SECS (23.9-33.8)
[2020-07-19 23:18] LABS: Blood Urea Nitrogen 14 MG/DL (7-18); Calcium 9.7 MG/DL (8.5-10.1); Carbon Dioxide 27 MMOL/L (21-32); Estimated Glom Filtration Rate 12 ML/MIN; Glucose 181 MG/DL (74-106); Osmolality,Calculated 278.8 MOS/KG (273-304); Potassium 3.6 MMOL/L (3.5-5.1); Sodium 137 MMOL/L (136-145)
[2020-07-19 23:19] LABS: Troponin I 0.424 NG/ML (0.00-0.045)
[2020-07-20] MEDS: INSULIN REGULAR 100 UNIT/ML SUBCUT SCH ×2 (00:44→05:51)
[2020-07-20] MEDS: fentaNYL INJ 1,250 MCG in SODIUM CHLORIDE 0.9% 225 ML IV PRN ×5 (01:42→23:15)
[2020-07-20] MEDS: MIDAZOLAM 100 MG in SODIUM CHLORIDE 0.9% 80 ML IV PRN ×2 (01:42→12:48)
[2020-07-20 02:08] LABS: Hypochromasia Slight; Platelet Estimate Normal; Polychromasia Few
[2020-07-20] MEDS: SODIUM CHLORIDE 0.9% 1,000 ML IV SCH ×2 (02:37→12:16)
[2020-07-20 04:52] LABS: ABG HCO3 28.9 MMOL/L (20-26); ABG PCO2 32.4 MM HG (35-48); ABG PH 7.534 (7.35-7.45); ABG TCO2 24.1 MMOL/L (23-27)
[2020-07-20 04:59] LABS: Basophils % 0.3 % (0.0-0.8); Hematocrit 39.2 VOL% (35.7-47.0); Immature Granulocytes % 0.5 %; Immature Granulocytes Absolute 0.03 #; Lymphocytes # 0.5 10*3/uL (1.4-4.0); Lymphocytes % 8.9 % (21.3-54.2); Mean Corpuscular HGB Conc 30.6 GM/DL (32-36); Mean Corpuscular Volume 96.8 FL (87-102); Neutrophils % 84.3 % (38.7-73.9); Platelet Count 131 T/CUMM (130-400); Red Blood Count 4.05 MC/CUMM (3.8-5.5); Red Cell Distribution Width 22.1 % (9.3-17.3); White Blood Count 5.9 T/CUMM (4-12)
[2020-07-20 05:06] LABS: PT Patient Result 11.5 SECS (10.5-12.0); Partial Thromboplastin Time 26.2 SECS (23.9-33.8)
[2020-07-20 05:11] LABS: Albumin 2.5 G/DL (3.4-5.0); Bilirubin,Total 0.4 MG/DL (0.2-1.0); Calcium 9.2 MG/DL (8.5-10.1); Osmolality,Calculated 279.5 MOS/KG (273-304); Potassium 3.3 MMOL/L (3.5-5.1); Total Protein 5.8 G/DL (6.4-8.2)
[2020-07-20 05:23] LABS: Platelet Estimate Adequate
[2020-07-20] MEDS ORDERED: POTASSIUM CHLORIDE RIDER 100 ML IV PRN (05:26)
[2020-07-20] MEDS: HEPARIN/NACL 0.9% 2 UNITS/ML 1,000 UNIT/500 ML BAG IV SCH ×2 (05:50→17:31)
[2020-07-20] MEDS: INSULIN REGULAR 100 UNIT/ML IV SCH ×4 (08:31→19:57)
[2020-07-20] MEDS: PANTOPRAZOLE 40 MG VIAL IV SCH (08:37)
[2020-07-20] MEDS: amLODIPine 5 MG TABLET PO SCH ×2 (08:38→20:05)
[2020-07-20] MEDS: MINERAL OIL/PETROLATUM OPH OINT 3.5 GM TUBE BOTH EYES SCH ×3 (08:38→20:05)
[2020-07-20] MEDS ORDERED: POTASSIUM CHLORIDE 20 MEQ/15 ML UDCUP NG ONE (09:46)
[2020-07-20] MEDS ORDERED: MAGNESIUM SULF RIDER 2 GM/50 ML PREMIX IV ONE (09:46)
[2020-07-20 10:46] LABS: Basophils % 0.2 % (0.0-0.8); Hematocrit 38.7 VOL% (35.7-47.0); Immature Granulocytes % 0.4 %; Immature Granulocytes Absolute 0.02 #; Lymphocytes # 0.6 10*3/uL (1.4-4.0); Lymphocytes % 11.9 % (21.3-54.2); Mean Corpuscular Volume 96.3 FL (87-102); Mean Platelet Volume 11.4 FL (9.6-12.0); Monocytes % 8.6 % (1.7-12.7); Neutrophils % 78.9 % (38.7-73.9); Platelet Count 129 T/CUMM (130-400); Red Blood Count 4.02 MC/CUMM (3.8-5.5); Red Cell Distribution Width 22.2 % (9.3-17.3); White Blood Count 4.6 T/CUMM (4-12)
[2020-07-20 10:47] LABS: PT Patient Result 11.6 SECS (10.5-12.0); Partial Thromboplastin Time 25.7 SECS (23.9-33.8)
[2020-07-20 11:05] LABS: Hypochromasia 1+
[2020-07-20 11:06] LABS: Microcytosis 1+; Platelet Estimate Adequate; Polychromasia Slight
[2020-07-20 11:29] LABS: Calcium 9.3 MG/DL (8.5-10.1); Osmolality,Calculated 278.5 MOS/KG (273-304); Potassium 3.6 MMOL/L (3.5-5.1)
[2020-07-20] MEDS: PHENYLEPHRINE INJ 160 MG in SODIUM CHLORIDE 0.9% 234 ML IV PRN (16:47)
[2020-07-20 16:53] LABS: Basophils % 0.2 % (0.0-0.8); Eosinophils % 0.4 % (0.00-10.9); Hematocrit 37.1 VOL% (35.7-47.0); Hemoglobin 11.4 GM/DL (12.0-16.0); Immature Granulocytes % 0.4 %; Immature Granulocytes Absolute 0.02 #; Lymphocytes # 0.7 10*3/uL (1.4-4.0); Lymphocytes % 12.6 % (21.3-54.2); Mean Corpuscular HGB Conc 30.7 GM/DL (32-36); Mean Corpuscular Volume 97.6 FL (87-102); Mean Platelet Volume 12.4 FL (9.6-12.0); Monocytes % 9.1 % (1.7-12.7); Neutrophils % 77.3 % (38.7-73.9); Platelet Count 142 T/CUMM (130-400); Red Cell Distribution Width 22.2 % (9.3-17.3); White Blood Count 5.2 T/CUMM (4-12)
[2020-07-20 17:18] LABS: Calcium 9.3 MG/DL (8.5-10.1); Osmolality,Calculated 278.5 MOS/KG (273-304); PT Patient Result 11.6 SECS (10.5-12.0); Partial Thromboplastin Time 26.3 SECS (23.9-33.8); Potassium 3.4 MMOL/L (3.5-5.1)
[2020-07-20] MEDS ORDERED: SODIUM CHLORIDE 0.9% 500 ML IV ONE (18:06)
[2020-07-20 23:16] LABS: PT Patient Result 11.5 SECS (10.5-12.0); Partial Thromboplastin Time 27.3 SECS (23.9-33.8)
[2020-07-20 23:20] LABS: Calcium 9.3 MG/DL (8.5-10.1); Osmolality,Calculated 282.4 MOS/KG (273-304); Potassium 3.3 MMOL/L (3.5-5.1)
[2020-07-20 23:29] LABS: Basophils % 0.3 % (0.0-0.8); Eosinophils % 0.5 % (0.00-10.9); Hematocrit 38.9 VOL% (35.7-47.0); Hemoglobin 11.9 GM/DL (12.0-16.0); Immature Granulocytes % 0.5 %; Immature Granulocytes Absolute 0.04 #; Lymphocytes # 0.8 10*3/uL (1.4-4.0); Lymphocytes % 10.8 % (21.3-54.2); Mean Corpuscular HGB Conc 30.6 GM/DL (32-36); Mean Platelet Volume 11.5 FL (9.6-12.0); Monocytes % 7.3 % (1.7-12.7); NRBC # 0.03 10*3/uL; Neutrophils % 80.6 % (38.7-73.9); Platelet Count 162 T/CUMM (130-400); Red Blood Count 4.01 MC/CUMM (3.8-5.5); Red Cell Distribution Width 22.6 % (9.3-17.3); White Blood Count 7.8 T/CUMM (4-12)
[2020-07-21] MEDS: MIDAZOLAM 100 MG in SODIUM CHLORIDE 0.9% 80 ML IV PRN ×2 (00:03→12:07)
[2020-07-21] MEDS: INSULIN REGULAR 100 UNIT/ML IV SCH ×6 (00:04→14:16)
[2020-07-21 04:12] LABS: Basophils % 0.2 % (0.0-0.8); Eosinophils # 0.1 10*3/uL (0.0-0.87); Eosinophils % 0.6 % (0.00-10.9); Hematocrit 40.3 VOL% (35.7-47.0); Hemoglobin 12.1 GM/DL (12.0-16.0); Immature Granulocytes % 0.6 %; Immature Granulocytes Absolute 0.06 #; Lymphocytes # 0.6 10*3/uL (1.4-4.0); Lymphocytes % 6.8 % (21.3-54.2); Mean Corpuscular Volume 98.1 FL (87-102); Monocytes % 6.4 % (1.7-12.7); NRBC # 0.05 10*3/uL; Neutrophils % 85.4 % (38.7-73.9); Platelet Count 179 T/CUMM (130-400); Red Blood Count 4.11 MC/CUMM (3.8-5.5); Red Cell Distribution Width 22.7 % (9.3-17.3); White Blood Count 9.3 T/CUMM (4-12)
[2020-07-21 04:12] LABS: ABG Base Excess 0.6 MMOL/L (-2.5-2.5); ABG HCO3 24.3 MMOL/L (20-26); ABG Oxygen Saturation 99.2 % (95-100); ABG PH 7.447 (7.35-7.45); ABG PO2 165.5 MM HG (80-95); ABG TCO2 25.4 MMOL/L (23-27)
[2020-07-21 04:21] LABS: PT Patient Result 11.4 SECS (10.5-12.0); Partial Thromboplastin Time 26.7 SECS (23.9-33.8)
[2020-07-21 04:32] LABS: Hypochromasia 1+; Microcytosis 1+; Platelet Estimate Adequate; Polychromasia Slight
[2020-07-21 04:43] LABS: Calcium 9.1 MG/DL (8.5-10.1); Osmolality,Calculated 282.4 MOS/KG (273-304); Potassium 3.5 MMOL/L (3.5-5.1)
[2020-07-21 04:46] LABS: CKMB % 37.3 %
[2020-07-21 04:55] LABS: Troponin I 2.67 NG/ML (0.00-0.045)
[2020-07-21 05:05] LABS: Albumin 2.1 G/DL (3.4-5.0); Bilirubin,Total 0.4 MG/DL (0.2-1.0); Calcium 9.1 MG/DL (8.5-10.1); Osmolality,Calculated 280.5 MOS/KG (273-304); Potassium 3.4 MMOL/L (3.5-5.1); Total Protein 5.1 G/DL (6.4-8.2)
[2020-07-21] MEDS: fentaNYL INJ 1,250 MCG in SODIUM CHLORIDE 0.9% 225 ML IV PRN (06:33)
[2020-07-21] MEDS: amLODIPine 5 MG TABLET PO SCH (08:09)
[2020-07-21 09:15] LABS: ABG Base Excess 0.6 MMOL/L (-2.5-2.5); ABG HCO3 24.9 MMOL/L (20-26); ABG Oxygen Saturation 96.4 % (95-100); ABG PCO2 38.5 MM HG (35-48); ABG PH 7.418 (7.35-7.45); ABG PO2 93.6 MM HG (80-95); ABG TCO2 21.9 MMOL/L (23-27)
[2020-07-21] MEDS: ASPIRIN CHEW 81 MG TABLET PO SCH (09:16)
[2020-07-21] MEDS: PANTOPRAZOLE 40 MG VIAL IV SCH (09:17)
[2020-07-21 09:19] LABS: Basophils % 0.2 % (0.0-0.8); Eosinophils # 0.1 10*3/uL (0.0-0.87); Eosinophils % 0.4 % (0.00-10.9); Immature Granulocytes % 0.8 %
[2020-07-21] MEDS: MINERAL OIL/PETROLATUM OPH OINT 3.5 GM TUBE BOTH EYES SCH ×3 (09:25→20:43)
[2020-07-21 09:27] LABS: PT Patient Result 11.5 SECS (10.5-12.0); Partial Thromboplastin Time 27.3 SECS (23.9-33.8)
[2020-07-21 09:34] LABS: Hematocrit 40.4 VOL% (35.7-47.0); Hemoglobin 12.6 GM/DL (12.0-16.0); Lymphocytes # 0.7 10*3/uL (1.4-4.0); Lymphocytes % 5.4 % (21.3-54.2); Mean Corpuscular HGB Conc 31.2 GM/DL (32-36); Mean Corpuscular Volume 96.7 FL (87-102); Mean Platelet Volume 11.8 FL (9.6-12.0); Monocytes % 6.3 % (1.7-12.7); NRBC # 0.07 10*3/uL; Neutrophils % 86.9 % (38.7-73.9); Platelet Count 199 T/CUMM (130-400); Red Blood Count 4.18 MC/CUMM (3.8-5.5); Red Cell Distribution Width 22.9 % (9.3-17.3); White Blood Count 12.6 T/CUMM (4-12)
[2020-07-21 09:56] LABS: Albumin 2.2 G/DL (3.4-5.0); Bilirubin,Total 0.4 MG/DL (0.2-1.0); CKMB % 36.9 %; Calcium 9.3 MG/DL (8.5-10.1); Osmolality,Calculated 283.4 MOS/KG (273-304); Potassium 3.5 MMOL/L (3.5-5.1); Total Protein 5.3 G/DL (6.4-8.2)
[2020-07-21 09:57] LABS: Troponin I 2.01 NG/ML (0.00-0.045)
[2020-07-21] MEDS: SODIUM CHLORIDE 0.9% 1,000 ML IV SCH (11:50)
[2020-07-21] MEDS ORDERED: fentaNYL INJ 2,500 MCG in SODIUM CHLORIDE 0.9% 75 ML IV PRN (12:51)
[2020-07-21 13:25] LABS: Hepatitis B Core IgM Quant 0.07 Index; Hepatitis B Surface Ag Quant < 0.10 Index; Hepatitis B Surface Ag Result Non-Reactive (NonReactive); Hepatitis C Virus Ab Quant 0.17 Index; Hepatitis C Virus Ab Result Non-Reactive (NonReactive)
[2020-07-21] MEDS ORDERED: LORazepam 2 MG/1 ML VIAL IV PRN (14:00)
[2020-07-21] MEDS: HEPARIN 5,000 UNIT/1 ML VIAL SUBCUT SCH ×2 (14:37→20:43)
[2020-07-21] MEDS: INSULIN REGULAR 100 UNIT/ML SUBCUT SCH ×2 (16:19→20:12)
[2020-07-21] MEDS: HEPARIN/NACL 0.9% 2 UNITS/ML 1,000 UNIT/500 ML BAG IV SCH (17:03)
[2020-07-21] MEDS ORDERED: HEPARIN 10,000 UNIT/10 ML VIAL IV SCH (17:15)
[2020-07-21] MEDS ORDERED: POTASSIUM CHLORIDE RIDER 10 MEQ in PREMIX 1 EACH IV PRN (18:50)
[2020-07-21] MEDS ORDERED: MAGNESIUM SULF RIDER 2 GM/50 ML PREMIX IV PRN (18:50)
[2020-07-21] MEDS ORDERED: MAGNESIUM SULF RIDER 4 GM/100 ML PREMIX IV PRN (18:50)
[2020-07-21] MEDS ORDERED: POTASSIUM CHLORIDE RIDER 20 MEQ in PREMIX 1 EACH IV PRN (18:50)
[2020-07-21] MEDS: ROSUVASTATIN 20 MG TABLET NG SCH (20:43)
[2020-07-22] MEDS: INSULIN REGULAR 100 UNIT/ML SUBCUT SCH ×7 (00:02→23:48)
[2020-07-22] MEDS: MIDAZOLAM 100 MG in SODIUM CHLORIDE 0.9% 80 ML IV PRN (02:51)
[2020-07-22 04:05] LABS: ABG Base Excess -0.3 MMOL/L (-2.5-2.5); ABG HCO3 24.7 MMOL/L (20-26); ABG Oxygen Saturation 98.2 % (95-100); ABG PCO2 41.9 MM HG (35-48); ABG PH 7.389 (7.35-7.45); ABG PO2 115.8 MM HG (80-95)
[2020-07-22 04:21] LABS: Bilirubin,Total 0.6 MG/DL (0.2-1.0); Osmolality,Calculated 279.8 MOS/KG (273-304); Potassium 3.9 MMOL/L (3.5-5.1); Total Protein 5.3 G/DL (6.4-8.2)
[2020-07-22] MEDS: SODIUM CHLORIDE 0.9% 1,000 ML IV SCH ×2 (04:29→09:04)
[2020-07-22 04:46] LABS: Basophils % 0.2 % (0.0-0.8); Eosinophils # 0.1 10*3/uL (0.0-0.87); Eosinophils % 0.5 % (0.00-10.9); Hemoglobin 11.6 GM/DL (12.0-16.0); Immature Granulocytes % 1.1 %; Immature Granulocytes Absolute 0.19 #; Lymphocytes # 0.9 10*3/uL (1.4-4.0); Lymphocytes % 5.3 % (21.3-54.2); Mean Corpuscular Volume 100.5 FL (87-102); Mean Platelet Volume 11.9 FL (9.6-12.0); Monocytes % 9.3 % (1.7-12.7); NRBC # 0.03 10*3/uL; Neutrophils % 83.6 % (38.7-73.9); Platelet Count 137 T/CUMM (130-400); Red Blood Count 3.98 MC/CUMM (3.8-5.5); Red Cell Distribution Width 22.7 % (9.3-17.3)
[2020-07-22] MEDS: HEPARIN 5,000 UNIT/1 ML VIAL SUBCUT SCH ×3 (05:15→20:39)
[2020-07-22 05:51] LABS: Platelet Estimate Adequate
[2020-07-22 05:52] LABS: Anisocytosis 1+; Burr Cells Few; Macrocytosis 2+
[2020-07-22] MEDS: ASPIRIN CHEW 81 MG TABLET PO SCH (08:14)
[2020-07-22] MEDS: PANTOPRAZOLE 40 MG VIAL IV SCH (08:15)
[2020-07-22] MEDS: MINERAL OIL/PETROLATUM OPH OINT 3.5 GM TUBE BOTH EYES SCH ×3 (08:21→20:38)
[2020-07-22] MEDS: CEFEPIME 1,000 MG in SODIUM CHLORIDE 0.9% 100 ML IV SCH (09:02)
[2020-07-22] MEDS: PHENYLEPHRINE INJ 160 MG in SODIUM CHLORIDE 0.9% 234 ML IV PRN (10:52)
[2020-07-22] MEDS: HEPARIN/NACL 0.9% 2 UNITS/ML 1,000 UNIT/500 ML BAG IV SCH (19:25)
[2020-07-22] MEDS: ROSUVASTATIN 20 MG TABLET NG SCH (20:38)
[2020-07-23] MEDS: INSULIN REGULAR 100 UNIT/ML SUBCUT SCH ×5 (04:00→23:59)
[2020-07-23 04:41] LABS: ABG Base Excess 0.1 MMOL/L (-2.5-2.5); ABG HCO3 24.5 MMOL/L (20-26); ABG Oxygen Saturation 98.7 % (95-100); ABG PCO2 38.3 MM HG (35-48); ABG PH 7.423 (7.35-7.45); ABG TCO2 25.6 MMOL/L (23-27)
[2020-07-23 05:18] LABS: Calcium 9.7 MG/DL (8.5-10.1); Osmolality,Calculated 288.4 MOS/KG (273-304)
[2020-07-23] MEDS: HEPARIN 5,000 UNIT/1 ML VIAL SUBCUT SCH ×3 (05:25→21:40)
[2020-07-23 05:43] LABS: Basophils % 0.2 % (0.0-0.8); Eosinophils # 0.1 10*3/uL (0.0-0.87); Eosinophils % 0.4 % (0.00-10.9); Hematocrit 34.2 VOL% (35.7-47.0); Immature Granulocytes % 1.1 %; Immature Granulocytes Absolute 0.15 #; Lymphocytes # 0.8 10*3/uL (1.4-4.0); Lymphocytes % 5.9 % (21.3-54.2); Mean Corpuscular HGB Conc 29.2 GM/DL (32-36); Mean Corpuscular Volume 99.7 FL (87-102); Mean Platelet Volume 10.9 FL (9.6-12.0); Monocytes % 8.4 % (1.7-12.7); Platelet Count 100 T/CUMM (130-400); Red Blood Count 3.43 MC/CUMM (3.8-5.5); Red Cell Distribution Width 22.5 % (9.3-17.3); White Blood Count 13.5 T/CUMM (4-12)
[2020-07-23 06:28] LABS: Anisocytosis 2+; Band Neutrophils 7 % (0-10); Lymphocytes 4 % (20-55); Macrocytosis 1+; Nucleated Red Blood Cells 1 (0-5); Platelet Estimate Adequate; Segmented Neutrophils 81 % (50-85); Tear Drop Cells Few; Total Cells Counted 100
[2020-07-23 06:29] LABS: Basophilic Stippling Slight; Burr Cells Few
[2020-07-23] MEDS: PANTOPRAZOLE 40 MG VIAL IV SCH (08:38)
[2020-07-23] MEDS: CEFEPIME 1,000 MG in SODIUM CHLORIDE 0.9% 100 ML IV SCH (08:38)
[2020-07-23] MEDS: ASPIRIN CHEW 81 MG TABLET PO SCH (08:43)
[2020-07-23] MEDS: MINERAL OIL/PETROLATUM OPH OINT 3.5 GM TUBE BOTH EYES SCH ×3 (08:43→21:41)
[2020-07-23] MEDS: HEPARIN/NACL 0.9% 2 UNITS/ML 1,000 UNIT/500 ML BAG IV SCH (17:24)
[2020-07-23] MEDS: ROSUVASTATIN 20 MG TABLET NG SCH (21:35)
[2020-07-24 03:57] LABS: ABG Base Excess -1.9 MMOL/L (-2.5-2.5); ABG HCO3 22.8 MMOL/L (20-26); ABG Oxygen Saturation 99.4 % (95-100); ABG PCO2 41.2 MM HG (35-48); ABG PH 7.362 (7.35-7.45); ABG TCO2 21.5 MMOL/L (23-27)
[2020-07-24 04:11] LABS: Basophils % 0.2 % (0.0-0.8); Eosinophils # 0.1 10*3/uL (0.0-0.87); Eosinophils % 0.6 % (0.00-10.9); Hematocrit 33.6 VOL% (35.7-47.0); Hemoglobin 9.9 GM/DL (12.0-16.0); Immature Granulocytes Absolute 0.13 #; Lymphocytes # 0.7 10*3/uL (1.4-4.0); Lymphocytes % 5.2 % (21.3-54.2); Mean Corpuscular HGB Conc 29.5 GM/DL (32-36); Mean Corpuscular Volume 99.4 FL (87-102); Monocytes % 12.7 % (1.7-12.7); Neutrophils % 80.3 % (38.7-73.9); Platelet Count 141 T/CUMM (130-400); Red Blood Count 3.38 MC/CUMM (3.8-5.5); Red Cell Distribution Width 21.8 % (9.3-17.3); White Blood Count 13.2 T/CUMM (4-12)
[2020-07-24 04:24] LABS: Calcium 9.6 MG/DL (8.5-10.1); Osmolality,Calculated 292.4 MOS/KG (273-304); Potassium 4.1 MMOL/L (3.5-5.1)
[2020-07-24 04:30] LABS: Hypochromasia 1+; Lymphocytes 5 % (20-55); Microcytosis 1+; Platelet Estimate Adequate; Segmented Neutrophils 86 % (50-85); Total Cells Counted 100
[2020-07-24] MEDS: HEPARIN 5,000 UNIT/1 ML VIAL SUBCUT SCH ×3 (05:40→21:10)
[2020-07-24] MEDS: INSULIN REGULAR 100 UNIT/ML SUBCUT SCH ×4 (05:40→23:30)
[2020-07-24] MEDS: ASPIRIN CHEW 81 MG TABLET PO SCH (09:25)
[2020-07-24] MEDS: PANTOPRAZOLE 40 MG VIAL IV SCH (09:26)
[2020-07-24] MEDS: MINERAL OIL/PETROLATUM OPH OINT 3.5 GM TUBE BOTH EYES SCH ×3 (10:19→21:09)
[2020-07-24] MEDS ORDERED: ALBUMIN 25% 25 GM/100 ML VIAL IV ONE (15:25)
[2020-07-24] MEDS: CEFEPIME 1,000 MG in SODIUM CHLORIDE 0.9% 100 ML IV SCH (17:30)
[2020-07-24] MEDS: HEPARIN/NACL 0.9% 2 UNITS/ML 1,000 UNIT/500 ML BAG IV SCH (17:32)
[2020-07-24] MEDS: ROSUVASTATIN 20 MG TABLET NG SCH (21:09)
[2020-07-25 04:10] LABS: ABG Base Excess -1.7 MMOL/L (-2.5-2.5); ABG Oxygen Saturation 99.8 % (95-100); ABG PCO2 39.6 MM HG (35-48); ABG PH 7.378 (7.35-7.45); ABG TCO2 21.2 MMOL/L (23-27)
[2020-07-25 04:28] LABS: Calcium 10.3 MG/DL (8.5-10.1); Osmolality,Calculated 281.8 MOS/KG (273-304)
[2020-07-25 04:35] LABS: Basophils % 0.2 % (0.0-0.8); Eosinophils # 0.1 10*3/uL (0.0-0.87); Eosinophils % 1.2 % (0.00-10.9); Hematocrit 33.3 VOL% (35.7-47.0); Hemoglobin 9.8 GM/DL (12.0-16.0); Immature Granulocytes Absolute 0.09 #; Lymphocytes # 0.5 10*3/uL (1.4-4.0); Lymphocytes % 5.9 % (21.3-54.2); Mean Corpuscular HGB Conc 29.4 GM/DL (32-36); Mean Corpuscular Volume 98.2 FL (87-102); Mean Platelet Volume 12.5 FL (9.6-12.0); Monocytes % 12.1 % (1.7-12.7); Neutrophils % 79.6 % (38.7-73.9); Platelet Count 133 T/CUMM (130-400); Red Blood Count 3.39 MC/CUMM (3.8-5.5); Red Cell Distribution Width 21.3 % (9.3-17.3); White Blood Count 9.2 T/CUMM (4-12)
[2020-07-25] MEDS: INSULIN REGULAR 100 UNIT/ML SUBCUT SCH ×3 (05:19→18:27)
[2020-07-25] MEDS: HEPARIN 5,000 UNIT/1 ML VIAL SUBCUT SCH ×3 (05:40→22:00)
[2020-07-25] MEDS: MINERAL OIL/PETROLATUM OPH OINT 3.5 GM TUBE BOTH EYES SCH ×3 (08:44→21:59)
[2020-07-25] MEDS: ASPIRIN CHEW 81 MG TABLET PO SCH (08:45)
[2020-07-25] MEDS: PANTOPRAZOLE 40 MG VIAL IV SCH (08:50)
[2020-07-25] MEDS: HEPARIN/NACL 0.9% 2 UNITS/ML 1,000 UNIT/500 ML BAG IV SCH (18:26)
[2020-07-25] MEDS: CEFEPIME 1,000 MG in SODIUM CHLORIDE 0.9% 100 ML IV SCH (18:51)
[2020-07-25] MEDS: ROSUVASTATIN 20 MG TABLET NG SCH (21:59)
[2020-07-25] MEDS ORDERED: SCOPOLAMINE 1.5 MG PATCH TRANSDERM PRN (23:54)
[2020-07-26] MEDS: INSULIN REGULAR 100 UNIT/ML SUBCUT SCH ×4 (01:19→18:40)
[2020-07-26 05:29] LABS: ABG Base Excess -6.8 MMOL/L (-2.5-2.5); ABG HCO3 18.9 MMOL/L (20-26); ABG Oxygen Saturation 99.7 % (95-100); ABG PCO2 35.3 MM HG (35-48); ABG PH 7.327 (7.35-7.45); ABG TCO2 17.2 MMOL/L (23-27)
[2020-07-26 05:47] LABS: Basophils % 0.2 % (0.0-0.8); Eosinophils # 0.1 10*3/uL (0.0-0.87); Eosinophils % 1.3 % (0.00-10.9); Hematocrit 33.9 VOL% (35.7-47.0); Immature Granulocytes % 0.7 %; Immature Granulocytes Absolute 0.06 #; Lymphocytes # 0.6 10*3/uL (1.4-4.0); Lymphocytes % 7.4 % (21.3-54.2); Mean Corpuscular HGB Conc 29.5 GM/DL (32-36); Mean Corpuscular Volume 97.4 FL (87-102); Mean Platelet Volume 13.4 FL (9.6-12.0); Neutrophils % 79.4 % (38.7-73.9); Platelet Count 136 T/CUMM (130-400); Red Blood Count 3.48 MC/CUMM (3.8-5.5); Red Cell Distribution Width 21.4 % (9.3-17.3); White Blood Count 8.6 T/CUMM (4-12)
[2020-07-26 05:48] LABS: Calcium 10.2 MG/DL (8.5-10.1); Osmolality,Calculated 287.8 MOS/KG (273-304); Potassium 4.8 MMOL/L (3.5-5.1)
[2020-07-26] MEDS: HEPARIN 5,000 UNIT/1 ML VIAL SUBCUT SCH ×3 (07:00→21:30)
[2020-07-26] MEDS: ASPIRIN CHEW 81 MG TABLET PO SCH (08:36)
[2020-07-26] MEDS: MINERAL OIL/PETROLATUM OPH OINT 3.5 GM TUBE BOTH EYES SCH ×3 (08:37→21:33)
[2020-07-26] MEDS: PANTOPRAZOLE 40 MG VIAL IV SCH (08:37)
[2020-07-26] MEDS ORDERED: PHENYLEPHRINE INJ 160 MG in SODIUM CHLORIDE 0.9% 234 ML IV PRN ×2 (08:57→09:17)
[2020-07-26] MEDS ORDERED: PHENYLEPHRINE DRIP 40 MG/250 ML PREMIX IV ONE (12:20)
[2020-07-26] MEDS: PHENYLEPHRINE DRIP 40 MG/250 ML PREMIX IV PRN (12:23)
[2020-07-26 16:19] VITALS: BP 147/57
[2020-07-26] MEDS: CEFEPIME 1,000 MG in SODIUM CHLORIDE 0.9% 100 ML IV SCH (17:20)
[2020-07-26] MEDS: HEPARIN/NACL 0.9% 2 UNITS/ML 1,000 UNIT/500 ML BAG IV SCH (18:40)
[2020-07-26] MEDS: ROSUVASTATIN 20 MG TABLET NG SCH (21:31)
[2020-07-27] MEDS: INSULIN REGULAR 100 UNIT/ML SUBCUT SCH ×4 (01:38→18:46)
[2020-07-27 04:32] LABS: Basophils % 0.3 % (0.0-0.8)
[2020-07-27 04:40] LABS: Eosinophils # 0.1 10*3/uL (0.0-0.87); Eosinophils % 0.9 % (0.00-10.9); Hematocrit 35.4 VOL% (35.7-47.0); Hemoglobin 10.8 GM/DL (12.0-16.0); Immature Granulocytes % 0.9 %; Immature Granulocytes Absolute 0.12 #; Lymphocytes % 7.1 % (21.3-54.2); Mean Corpuscular HGB Conc 30.5 GM/DL (32-36); Mean Platelet Volume 11.5 FL (9.6-12.0); Monocytes % 12.6 % (1.7-12.7); Neutrophils % 78.2 % (38.7-73.9); Platelet Count 208 T/CUMM (130-400); Red Blood Count 3.65 MC/CUMM (3.8-5.5); Red Cell Distribution Width 21.3 % (9.3-17.3)
[2020-07-27 04:44] LABS: ABG Base Excess -0.3 MMOL/L (-2.5-2.5); ABG HCO3 25.6 MMOL/L (20-26); ABG PCO2 46.6 MM HG (35-48); ABG PH 7.358 (7.35-7.45); ABG PO2 145.4 MM HG (80-95); Allen Test Positive; Pt O2 Delivery Device Ventilator
[2020-07-27 04:46] LABS: ABG Oxygen Saturation 98.8 % (95-100)
[2020-07-27 04:49] LABS: Calcium 10.6 MG/DL (8.5-10.1); Osmolality,Calculated 283.1 MOS/KG (273-304); Potassium 4.6 MMOL/L (3.5-5.1)
[2020-07-27 04:59] LABS: Eosinophils 1 % (0-10); Lymphocytes 4 % (20-55); Nucleated Red Blood Cells 1 (0-5); Platelet Estimate Adequate; Segmented Neutrophils 81 % (50-85); Total Cells Counted 100
[2020-07-27] MEDS: HEPARIN 5,000 UNIT/1 ML VIAL SUBCUT SCH ×3 (06:33→21:40)
[2020-07-27] MEDS: ASPIRIN CHEW 81 MG TABLET PO SCH (09:42)
[2020-07-27] MEDS: MINERAL OIL/PETROLATUM OPH OINT 3.5 GM TUBE BOTH EYES SCH ×3 (09:42→21:44)
[2020-07-27] MEDS: PANTOPRAZOLE 40 MG VIAL IV SCH (09:44)
[2020-07-27] MEDS: CEFEPIME 1,000 MG in SODIUM CHLORIDE 0.9% 100 ML IV SCH (17:35)
[2020-07-27] MEDS: ROSUVASTATIN 20 MG TABLET NG SCH (21:40)
[2020-07-27] MEDS: SALIVA SUBSTITUTE SPRAY 60 ML CAN SWISH/SWAL PRN (21:40)
[2020-07-28] MEDS: INSULIN REGULAR 100 UNIT/ML SUBCUT SCH ×5 (00:19→23:53)
[2020-07-28] MEDS: HEPARIN 5,000 UNIT/1 ML VIAL SUBCUT SCH ×3 (04:48→21:07)
[2020-07-28 04:49] LABS: Allen Test Positive; Pt O2 Delivery Device Ventilator
[2020-07-28 04:50] LABS: ABG Base Excess 0.9 MMOL/L (-2.5-2.5); ABG HCO3 25.3 MMOL/L (20-26); ABG Oxygen Saturation 99.9 % (95-100); ABG PCO2 44.8 MM HG (35-48); ABG PH 7.377 (7.35-7.45); ABG TCO2 24.2 MMOL/L (23-27)
[2020-07-28 05:20] LABS: Basophils % 0.2 % (0.0-0.8); Eosinophils # 0.1 10*3/uL (0.0-0.87); Eosinophils % 1.3 % (0.00-10.9); Hematocrit 31.6 VOL% (35.7-47.0); Hemoglobin 9.5 GM/DL (12.0-16.0); Immature Granulocytes Absolute 0.09 #; Lymphocytes # 0.6 10*3/uL (1.4-4.0); Lymphocytes % 6.8 % (21.3-54.2); Mean Corpuscular HGB Conc 30.1 GM/DL (32-36); Mean Corpuscular Volume 97.2 FL (87-102); Mean Platelet Volume 11.8 FL (9.6-12.0); Monocytes % 11.8 % (1.7-12.7); Neutrophils % 78.9 % (38.7-73.9); Platelet Count 161 T/CUMM (130-400); Red Blood Count 3.25 MC/CUMM (3.8-5.5); White Blood Count 9.2 T/CUMM (4-12)
[2020-07-28 05:36] LABS: Calcium 10.5 MG/DL (8.5-10.1); Osmolality,Calculated 287.1 MOS/KG (273-304)
[2020-07-28] MEDS: HEPARIN/NACL 0.9% 2 UNITS/ML 1,000 UNIT/500 ML BAG IV SCH (08:01)
[2020-07-28] MEDS: ASPIRIN CHEW 81 MG TABLET PO SCH (08:06)
[2020-07-28] MEDS: PANTOPRAZOLE 40 MG VIAL IV SCH (08:12)
[2020-07-28] MEDS: MINERAL OIL/PETROLATUM OPH OINT 3.5 GM TUBE BOTH EYES SCH ×3 (09:03→21:08)
[2020-07-28] MEDS: PHENYLEPHRINE DRIP 40 MG/250 ML PREMIX IV PRN ×2 (09:54→21:06)
[2020-07-28] MEDS: CEFEPIME 1,000 MG in SODIUM CHLORIDE 0.9% 100 ML IV SCH (18:38)
[2020-07-28] MEDS: ROSUVASTATIN 20 MG TABLET NG SCH (21:08)
[2020-07-28] MEDS: SALIVA SUBSTITUTE SPRAY 60 ML CAN SWISH/SWAL PRN (21:10)
[2020-07-28] MEDS: DESITIN 4OZ/NYSTATIN 15 GRAM MIXTURE PASTE TOP SCH (21:11)
[2020-07-29 04:21] LABS: ABG Base Excess -1.2 MMOL/L (-2.5-2.5); ABG HCO3 22.2 MMOL/L (20-26); ABG PCO2 33.6 MM HG (35-48); ABG PH 7.438 (7.35-7.45); ABG TCO2 23.2 MMOL/L (23-27); Allen Test Positive; Pt O2 Delivery Device Ventilator
[2020-07-29] MEDS: HEPARIN 5,000 UNIT/1 ML VIAL SUBCUT SCH ×3 (04:55→21:02)
[2020-07-29 05:08] LABS: Basophils # 0.1 10*3/uL (0.0-0.2); Basophils % 0.5 % (0.0-0.8); Eosinophils # 0.3 10*3/uL (0.0-0.87); Eosinophils % 2.1 % (0.00-10.9); Hematocrit 32.2 VOL% (35.7-47.0); Hemoglobin 9.4 GM/DL (12.0-16.0); Immature Granulocytes % 0.9 %; Immature Granulocytes Absolute 0.12 #; Lymphocytes # 1.1 10*3/uL (1.4-4.0); Lymphocytes % 8.3 % (21.3-54.2); Mean Corpuscular HGB Conc 29.2 GM/DL (32-36); Mean Corpuscular Volume 97.3 FL (87-102); Mean Platelet Volume 11.4 FL (9.6-12.0); Monocytes % 11.6 % (1.7-12.7); Neutrophils % 76.6 % (38.7-73.9); Platelet Count 229 T/CUMM (130-400); Red Blood Count 3.31 MC/CUMM (3.8-5.5); Red Cell Distribution Width 20.9 % (9.3-17.3); White Blood Count 12.8 T/CUMM (4-12)
[2020-07-29 05:30] LABS: Calcium 10.5 MG/DL (8.5-10.1); Osmolality,Calculated 287.7 MOS/KG (273-304); Potassium 4.7 MMOL/L (3.5-5.1)
[2020-07-29 06:44] LABS: Anisocytosis 1+; Hypochromasia 1+
[2020-07-29 06:45] LABS: Ovalocytes Few; Platelet Estimate Normal; Polychromasia Slight
[2020-07-29] MEDS: INSULIN REGULAR 100 UNIT/ML SUBCUT SCH ×3 (06:58→18:12)
[2020-07-29] MEDS: MINERAL OIL/PETROLATUM OPH OINT 3.5 GM TUBE BOTH EYES SCH ×3 (08:02→21:03)
[2020-07-29] MEDS ORDERED: LEVOFLOXACIN 750 MG TABLET PO ONE (08:30)
[2020-07-29] MEDS: ASPIRIN CHEW 81 MG TABLET PO SCH (09:41)
[2020-07-29] MEDS: FAMOTIDINE 8 MG/ML 50 ML/BOTTLE PO SCH ×2 (09:42→21:02)
[2020-07-29] MEDS: levETIRAcetam LIQUID 100 MG/ML 30 ML/BOTTLE PER TUBE SCH ×2 (09:42→21:02)
[2020-07-29] MEDS: DESITIN 4OZ/NYSTATIN 15 GRAM MIXTURE PASTE TOP SCH ×2 (09:42→21:01)
[2020-07-29] MEDS: PHENYLEPHRINE DRIP 40 MG/250 ML PREMIX IV PRN ×2 (12:45→18:50)
[2020-07-29] MEDS: SALIVA SUBSTITUTE SPRAY 60 ML CAN SWISH/SWAL PRN (21:02)
[2020-07-29] MEDS: ROSUVASTATIN 20 MG TABLET NG SCH (21:02)
[2020-07-30] MEDS: INSULIN REGULAR 100 UNIT/ML SUBCUT SCH ×5 (01:54→23:39)
[2020-07-30 04:23] LABS: ABG Base Excess 1.2 MMOL/L (-2.5-2.5); ABG HCO3 26.8 MMOL/L (20-26); ABG PCO2 47.3 MM HG (35-48); ABG PH 7.371 (7.35-7.45); ABG PO2 149.2 MM HG (80-95); ABG TCO2 28.2 MMOL/L (23-27)
[2020-07-30 05:19] LABS: Calcium 10.7 MG/DL (8.5-10.1); Osmolality,Calculated 294.8 MOS/KG (273-304); Potassium 5.4 MMOL/L (3.5-5.1)
[2020-07-30 05:22] LABS: Basophils % 0.3 % (0.0-0.8); Eosinophils # 0.2 10*3/uL (0.0-0.87); Hematocrit 29.6 VOL% (35.7-47.0); Hemoglobin 8.8 GM/DL (12.0-16.0); Immature Granulocytes Absolute 0.09 #; Lymphocytes # 0.7 10*3/uL (1.4-4.0); Lymphocytes % 7.2 % (21.3-54.2); Mean Corpuscular HGB Conc 29.7 GM/DL (32-36); Mean Corpuscular Volume 96.4 FL (87-102); Mean Platelet Volume 12.2 FL (9.6-12.0); Monocytes % 10.3 % (1.7-12.7); Neutrophils % 79.2 % (38.7-73.9); Platelet Count 194 T/CUMM (130-400); Red Blood Count 3.07 MC/CUMM (3.8-5.5); White Blood Count 9.2 T/CUMM (4-12)
[2020-07-30] MEDS: HEPARIN 5,000 UNIT/1 ML VIAL SUBCUT SCH ×2 (06:12→15:34)
[2020-07-30] MEDS: levETIRAcetam LIQUID 100 MG/ML 30 ML/BOTTLE PER TUBE SCH ×2 (08:15→21:30)
[2020-07-30] MEDS: MINERAL OIL/PETROLATUM OPH OINT 3.5 GM TUBE BOTH EYES SCH ×3 (08:15→21:30)
[2020-07-30] MEDS: FAMOTIDINE 8 MG/ML 50 ML/BOTTLE PO SCH ×2 (08:15→21:30)
[2020-07-30] MEDS: DESITIN 4OZ/NYSTATIN 15 GRAM MIXTURE PASTE TOP SCH ×2 (08:15→21:30)
[2020-07-30] MEDS: ASPIRIN CHEW 81 MG TABLET PO SCH (08:16)
[2020-07-30] MEDS: ROSUVASTATIN 20 MG TABLET NG SCH (21:30)
[2020-07-31 04:05] LABS: ABG Base Excess 0.9 MMOL/L (-2.5-2.5); ABG HCO3 26.7 MMOL/L (20-26); ABG Oxygen Saturation 98.3 % (95-100); ABG PCO2 48.5 MM HG (35-48); ABG PH 7.358 (7.35-7.45); ABG PO2 124.8 MM HG (80-95); ABG TCO2 28.2 MMOL/L (23-27)
[2020-07-31 05:06] LABS: Basophils % 0.2 % (0.0-0.8); Eosinophils # 0.2 10*3/uL (0.0-0.87); Eosinophils % 1.2 % (0.00-10.9); Hematocrit 29.3 VOL% (35.7-47.0); Hemoglobin 8.6 GM/DL (12.0-16.0); Immature Granulocytes % 0.5 %; Immature Granulocytes Absolute 0.07 #; Lymphocytes # 0.9 10*3/uL (1.4-4.0); Lymphocytes % 6.9 % (21.3-54.2); Mean Corpuscular HGB Conc 29.4 GM/DL (32-36); Mean Corpuscular Volume 97.3 FL (87-102); Mean Platelet Volume 11.6 FL (9.6-12.0); Monocytes % 5.2 % (1.7-12.7); Platelet Count 210 T/CUMM (130-400); Red Blood Count 3.01 MC/CUMM (3.8-5.5); Red Cell Distribution Width 20.6 % (9.3-17.3); White Blood Count 12.9 T/CUMM (4-12)
[2020-07-31 05:21] LABS: Osmolality,Calculated 300.8 MOS/KG (273-304); Potassium 5.6 MMOL/L (3.5-5.1)
[2020-07-31] MEDS: INSULIN REGULAR 100 UNIT/ML SUBCUT SCH ×3 (06:32→17:44)
[2020-07-31] MEDS ORDERED: BUPIVACAINE MPF 0.25% 30 ML VIAL ONE (06:33)
[2020-07-31] MEDS ORDERED: fentaNYL 100 MCG/2 ML VIAL ONE (07:10)
[2020-07-31] MEDS ORDERED: SEVOFLURANE 1 UNIT/15 MINUTE INH ONE (07:36)
[2020-07-31] MEDS ORDERED: ETOMIDATE 40 MG/20 ML VIAL IV ONE (07:36)
[2020-07-31] MEDS ORDERED: ROCURONIUM 50 MG/5 ML VIAL IV ONE (07:37)
[2020-07-31] MEDS ORDERED: ePHEDrine 50 MG/ML VIAL ONE (07:38)
[2020-07-31] MEDS: FAMOTIDINE 8 MG/ML 50 ML/BOTTLE PO SCH ×2 (08:36→20:33)
[2020-07-31] MEDS: MINERAL OIL/PETROLATUM OPH OINT 3.5 GM TUBE BOTH EYES SCH ×3 (08:36→20:34)
[2020-07-31] MEDS: ASPIRIN CHEW 81 MG TABLET PO SCH (08:36)
[2020-07-31] MEDS: levETIRAcetam LIQUID 100 MG/ML 30 ML/BOTTLE PER TUBE SCH ×2 (08:36→20:33)
[2020-07-31] MEDS: DESITIN 4OZ/NYSTATIN 15 GRAM MIXTURE PASTE TOP SCH ×2 (08:37→20:34)
[2020-07-31] MEDS ORDERED: LEVOFLOXACIN 500 MG TABLET PO SCH (09:00)
[2020-07-31] MEDS: HEPARIN 5,000 UNIT/1 ML VIAL SUBCUT SCH ×2 (13:32→20:34)
[2020-07-31] MEDS: SALIVA SUBSTITUTE SPRAY 60 ML CAN SWISH/SWAL PRN (20:28)
[2020-07-31] MEDS: ROSUVASTATIN 20 MG TABLET NG SCH (20:33)
[2020-07-31] MEDS: PHENYLEPHRINE DRIP 40 MG/250 ML PREMIX IV PRN (22:30)
[2020-08-01] MEDS: INSULIN REGULAR 100 UNIT/ML SUBCUT SCH ×5 (00:30→23:45)
[2020-08-01 05:17] LABS: Allen Test Positive; Pt O2 Delivery Device Ventilator
[2020-08-01 05:19] LABS: ABG Base Excess 3.1 MMOL/L (-2.5-2.5); ABG HCO3 27.2 MMOL/L (20-26); ABG Oxygen Saturation 99.4 % (95-100); ABG PCO2 48.1 MM HG (35-48); ABG PH 7.382 (7.35-7.45); ABG TCO2 26.9 MMOL/L (23-27)
[2020-08-01 05:21] LABS: Basophils % 0.3 % (0.0-0.8); Eosinophils # 0.3 10*3/uL (0.0-0.87); Eosinophils % 2.7 % (0.00-10.9); Hematocrit 26.2 VOL% (35.7-47.0); Hemoglobin 7.7 GM/DL (12.0-16.0); Immature Granulocytes % 0.7 %; Immature Granulocytes Absolute 0.08 #; Lymphocytes # 0.9 10*3/uL (1.4-4.0); Lymphocytes % 7.7 % (21.3-54.2); Mean Corpuscular HGB Conc 29.4 GM/DL (32-36); Mean Corpuscular Volume 97.4 FL (87-102); Mean Platelet Volume 11.6 FL (9.6-12.0); Monocytes % 7.2 % (1.7-12.7); Neutrophils % 81.4 % (38.7-73.9); Platelet Count 184 T/CUMM (130-400); Red Blood Count 2.69 MC/CUMM (3.8-5.5); Red Cell Distribution Width 20.6 % (9.3-17.3); White Blood Count 11.7 T/CUMM (4-12)
[2020-08-01 05:39] LABS: INR 1.1; PT Patient Result 11.9 SECS (10.5-12.0)
[2020-08-01 05:47] LABS: Calcium 10.7 MG/DL (8.5-10.1); Osmolality,Calculated 293.8 MOS/KG (273-304)
[2020-08-01 05:58] LABS: Eosinophils 1 % (0-10); Hypochromasia 2+; Lymphocytes 8 % (20-55); Microcytosis 1+; Platelet Estimate Adequate; Segmented Neutrophils 86 % (50-85); Total Cells Counted 100
[2020-08-01] MEDS ORDERED: SODIUM CHLORIDE 0.9% 1,000 ML IV SCH (08:00)
[2020-08-01] MEDS ORDERED: CIPROFLOXACIN INJ 400 MG/200 ML PREMIX IV ONE (08:00)
[2020-08-01] MEDS: MINERAL OIL/PETROLATUM OPH OINT 3.5 GM TUBE BOTH EYES SCH ×3 (08:56→20:01)
[2020-08-01] MEDS: DESITIN 4OZ/NYSTATIN 15 GRAM MIXTURE PASTE TOP SCH ×2 (09:11→20:01)
[2020-08-01] MEDS: FAMOTIDINE 8 MG/ML 50 ML/BOTTLE PO SCH ×2 (10:05→20:01)
[2020-08-01] MEDS: levETIRAcetam LIQUID 100 MG/ML 30 ML/BOTTLE PER TUBE SCH ×2 (10:05→20:00)
[2020-08-01] MEDS: ASPIRIN CHEW 81 MG TABLET PO SCH (10:06)
[2020-08-01] MEDS ORDERED: ROCURONIUM 50 MG/5 ML VIAL IV ONE (13:42)
[2020-08-01] MEDS ORDERED: MIDAZOLAM 2 MG/2 ML VIAL ONE (13:42)
[2020-08-01] MEDS: INSULIN GLARGINE 100 UNIT/ML SUBCUT SCH (14:43)
[2020-08-01] MEDS: ROSUVASTATIN 20 MG TABLET NG SCH (20:00)
[2020-08-02 04:33] LABS: ABG Base Excess 0.9 MMOL/L (-2.5-2.5); ABG HCO3 25.3 MMOL/L (20-26); ABG Oxygen Saturation 99.6 % (95-100); ABG PH 7.367 (7.35-7.45); ABG TCO2 24.9 MMOL/L (23-27); Allen Test Positive; Pt O2 Delivery Device Ventilator
[2020-08-02 04:36] LABS: Basophils % 0.3 % (0.0-0.8); Eosinophils # 0.3 10*3/uL (0.0-0.87); Eosinophils % 2.5 % (0.00-10.9); Hematocrit 25.9 VOL% (35.7-47.0); Hemoglobin 7.4 GM/DL (12.0-16.0); Immature Granulocytes % 0.9 %; Immature Granulocytes Absolute 0.09 #; Lymphocytes # 0.9 10*3/uL (1.4-4.0); Lymphocytes % 8.6 % (21.3-54.2); Mean Corpuscular HGB Conc 28.6 GM/DL (32-36); Mean Corpuscular Volume 98.5 FL (87-102); Mean Platelet Volume 11.9 FL (9.6-12.0); Neutrophils % 80.7 % (38.7-73.9); Platelet Count 199 T/CUMM (130-400); Red Blood Count 2.63 MC/CUMM (3.8-5.5); Red Cell Distribution Width 20.5 % (9.3-17.3); White Blood Count 10.4 T/CUMM (4-12)
[2020-08-02 04:47] LABS: Calcium 10.7 MG/DL (8.5-10.1); Osmolality,Calculated 294.8 MOS/KG (273-304); Potassium 5.4 MMOL/L (3.5-5.1)
[2020-08-02 04:54] LABS: Anisocytosis 1+; Hypochromasia 1+; Microcytosis 1+; Platelet Estimate Adequate
[2020-08-02] MEDS: INSULIN REGULAR 100 UNIT/ML SUBCUT SCH ×2 (06:14→12:34)
[2020-08-02] MEDS: ASPIRIN CHEW 81 MG TABLET PO SCH (09:29)
[2020-08-02] MEDS: DESITIN 4OZ/NYSTATIN 15 GRAM MIXTURE PASTE TOP SCH (09:30)
[2020-08-02] MEDS: FAMOTIDINE 8 MG/ML 50 ML/BOTTLE PO SCH (09:30)
[2020-08-02] MEDS: INSULIN GLARGINE 100 UNIT/ML SUBCUT SCH (09:30)
[2020-08-02] MEDS: levETIRAcetam LIQUID 100 MG/ML 30 ML/BOTTLE PER TUBE SCH (09:31)
[2020-08-02] MEDS ORDERED: MINERAL OIL/PETROLATUM OPH OINT 3.5 GM TUBE BOTH EYES PRN (09:32)
[2020-08-02] MEDS: MINERAL OIL/PETROLATUM OPH OINT 3.5 GM TUBE BOTH EYES SCH (09:33)
== END 2020-08-02 12:30 | DRG 4 ==
LOC: N.ED 15:07 → SUATTDRO 16:03 → N.EDINP 16:03 → N.ICU 16:50
PROVIDERS: ADMIT Internal Medicine; ATTEND Internal Medicine
PROC: EGDWPEG (ICD-10-PCS; 2020-08-01 11:20)